=== PATIENT | male | born 1990 | race American Indian/Alaskan Native ===

== ENCOUNTER 2020-09-22 19:13 | Emergency (ER) | payer OTHER ==
[2020-09-22 20:16] VITALS: BP 135/77; PULSE 104; TEMP 101.8; BMI 34.0
[2020-09-22] MEDS ORDERED: KETOROLAC TROMETHAMINE 30 MG/1 ML VIAL IM ONE (20:18)
[2020-09-22] MEDS ORDERED: ACETAMINOPHEN 500 MG TABLET (FP) PO ONE (20:18)
[2020-09-22] MEDS ORDERED: SODIUM CHLORIDE 0.9% 500 ML INFUS.BAG IV ONE (20:35)
[2020-09-22] MEDS ORDERED: ACETAMINOPHEN 500 MG TABLET (FP) ONE (20:59)
[2020-09-22 21:29] LABS: BASO % 0.6 % (0-2.0); EOS % 0.7 % (0-4.5); HEMATOCRIT 41.9 % (35.4-49); HEMOGLOBIN 14.6 GM/dL (11.7-16.9); LYMPH % 9.1 % (8-40); MCH 29.4 pg (25.7-33.7); MCHC 34.8 g/dl (32.0-35.9); MEAN CELL VOLUME 84.4 fl (80-96); MEAN PLT VOLUME 8.5 fl (7.5-11.1); MONO % 6.1 % (3.8-10.2); NEUT % 83.5 % (42.8-82.8); PLATELET COUNT 151 10^3/uL (134-434); RBC 4.96 M/mm3 (4.00-5.60); RDW 13.7 % (11.9-15.9); WHITE BLOOD COUNT 6.3 K/mm3 (4.0-10.0)
[2020-09-22 21:49] LABS: ALBUMIN 3.8 g/dl (3.4-5.0); CALCIUM 8.1 mg/dL (8.5-10.1)
[2020-09-22 21:52] LABS: CREATININE 1.3 mg/dL (0.55-1.3)
[2020-09-22 21:55] LABS: BILIRUBIN,TOTAL 0.8 mg/dL (0.2-1); TOT PROT 7.2 g/dl (6.4-8.2)
[2020-09-22] MEDS ORDERED: morphine CARPU-JECT 4 MG/1 ML DISP.SYRIN IVPUSH ONE (22:48)
[2020-09-22] MEDS ORDERED: morphine SULFATE 4 MG/ML VIAL ONE (23:12)
== END 2020-09-23 02:12 | disposition home or self-care (01) ==
LOC: JER 19:13
PROC: 3E0233Z Introduction of Anti-inflammatory into Muscle, Percutaneous Approach (ICD-10-PCS; principal; 2020-09-22)
PROC: 3E033NZ Introduction of Analgesics, Hypnotics, Sedatives into Peripheral Vein, Percutaneous Approach (ICD-10-PCS; 2020-09-22)
DX: R50.9 Fever, unspecified (principal); R10.31 Right lower quadrant pain; Z11.52 Encounter for screening for COVID-19
CPT/HCPCS: 36415; 74177-TC; 80053; 83690; 85025; 87804; 99285-25; C9803; Q9967; U0003; U0005